=== PATIENT | male | born 1965 | race African-American/Black ===

== ENCOUNTER 2018-07-10 21:14 | Emergency (ER) | payer OTHER ==
[2018-07-10] MEDS ORDERED: ACETAMINOPHEN 500 MG TAB ONE (22:57)
--- NOTE | 2018-07-10 23:21 | EDPHYS ---
Physician Documentation [facility] Name: Phillip Faustin Age: 53 yrs Sex: Male : 1965 Arrival Date: 07/10/2018 Time: 21:15 Bed 8 Private MD: ED Physician Brandan Monsalve HPI: 07/10 23:27 This 53 yrs old Black Male presents to ER via Ambulatory with complaints of Cough, tw4 CHEST HURT WHEN COUGH. 23:27 The patient or guardian reports cough, described as moderate, with productive sputum. tw4 Onset: The symptoms/episode began/occurred 2 day(s) ago. Severity of symptoms: At their worst the symptoms were mild, in the emergency department the symptoms are unchanged. Modifying factors: The symptoms are alleviated by nothing, the symptoms are aggravated by nothing. Associated signs and symptoms: The patient has no apparent associated signs or symptoms. The patient has not experienced similar symptoms in the past. Historical: - Allergies: 21:26 No Known Allergies; aj1 - Home Meds: 21:26 None [Active]; aj1 - PMHx: 21:26 heart blockage; High Cholesterol; Hypertension; aj1 - Immunization history:: Flu vaccine is not up to date. - Social history:: Smoking status: Patient uses tobacco products, denies chronic smoking, but will smoke occasionally. - Ebola Screening: : Patient denies travel to an Ebola-affected area in the 21 days before illness onset. ROS: 23:27 Constitutional: Negative for fever, chills, and weight loss, Eyes: Negative for injury, tw4 pain, redness, and discharge, Cardiovascular: Negative for chest pain, palpitations, and edema, Abdomen/GI: Negative for abdominal pain, nausea, vomiting, diarrhea, and constipation. 23:27 Back: Negative for injury and pain, MS/Extremity: Negative for injury and deformity, Skin: Negative for injury, rash, and discoloration, Neuro: Negative for headache, weakness, numbness, tingling, and seizure. Exam: 23:27 Constitutional: This is a well developed, well nourished patient who is awake, alert, tw4 and in no acute distress. Head/Face: Normocephalic, atraumatic. Chest/axilla: Normal chest wall appearance and motion. Nontender with no deformity. No lesions are appreciated. Cardiovascular: Regular rate and rhythm with a normal S1 and S2. No gallops, murmurs, or rubs. Normal PMI, no JVD. No pulse deficits. Respiratory: Lungs have equal breath sounds bilaterally, clear to auscultation and percussion. No rales, rhonchi or wheezes noted. No increased work of breathing, no retractions or nasal flaring. Abdomen/GI: Soft, non-tender, with normal bowel sounds. No distension or tympany. No guarding or rebound. No evidence of tenderness throughout. Back: No spinal tenderness. No costovertebral tenderness. Full range of motion. MS/ Extremity: Pulses equal, no cyanosis. Neurovascular intact. Full, normal range of motion. Neuro: Awake and alert, GCS 15, oriented to person, place, time, and situation. Cranial nerves II-XII grossly intact. Motor strength 5/5 in all extremities. Sensory grossly intact. Cerebellar exam normal. Normal gait. Vital Signs: 21:26 BP 143 / 92; Pulse 100; Resp 18; Temp 98.5; Pulse Ox 95% on R/A; Weight 61.23 kg (R); aj1 Height 5 ft. 2 in. (157.48 cm) (R); Pain 8/10; 22:18 BP 111 / 55; Pulse 88; Resp 17; Pulse Ox 97% on R/A; tl1 23:29 BP 122 / 61; Pulse 91; Resp 17; Temp 99.8; Pulse Ox 98% on R/A; Pain 5/10; tl1 21:26 Body Mass Index 24.69 (61.23 kg, 157.48 cm) aj1 MDM: 21:50 Patient medically screened. tw4 23:27 Differential Diagnosis: Bronchitis Influenza Upper Respiratory Infection Pharyngitis tw4 Pneumonia. Data reviewed: vital signs, nurses notes. Counseling: I had a detailed discussion with the patient and/or guardian regarding: the historical points, exam findings, and any diagnostic results supporting the discharge/admit diagnosis, lab results. Special discussion: I discussed with the patient/guardian in detail that at this point there is no indication for admission to the hospital. It is understood, however, that if the symptoms persist or worsen the patient needs to return immediately for re-evaluation. ED course: CXR negative for acute changes, pt states he feels well. instructed to return to the ED if symptoms. 07/10 22:19 Order name: Influenza Screen (A EDCA 07/10 22:23 Order name: Chest Pa And Lat (2 Views) EDCA Administered Medications: 22:48 Drug: Tylenol 1000 mg Route: PO; tl1 23:30 Follow up: Response: No adverse reaction; Marked relief of symptoms; Pain is decreased tl1 Disposition: 07/10/18 23:20 Discharged to Home. Impression: Bronchitis, not specified as acute or chronic. - Condition is Stable. - Discharge Instructions: Acute Bronchitis, Adult, Upper Respiratory Infection, Adult, Cough, Adult. - Prescriptions for Tessalon Perles 100 mg Oral Capsule - take 1 capsule by ORAL route every 8 hours As needed; 15 capsule. Albuterol Sulfate 90 mcg/actuation - inhale 1-2 puff by INHALATION route every 4-6 hours; 1 Inhaler. Guaifenesin AC 10- 100 mg/5 mL Oral Liquid - take 10 milliliter by ORAL route every 4 hours As needed; 240 milliliter. - Work release form, Medication Reconciliation Form, Thank You Letter, Antibiotic Education, Prescription Opioid Use form. - Follow up: Private Physician; When: Upon discharge from the Emergency Department; Reason: If symptoms return, Recheck today's complaints, Continuance of care. - Problem is new. - Symptoms have improved. Signatures: Dispatcher [employer] [facility] Anastasiya Culver RN RN aj1 Erica Fernandez RN RN tl1 Brandan Monsalve MD MD tw4 Corrections: (The following items were deleted from the chart) 22:46 22:25 Group A Streptococcus Rapid Sc+BA.LAB.BRZ ordered. [facility] 22:47 22:25 Influenza Screen (A \T\ B)+BA.LAB.BRZ ordered. [facility] EDCA 22:57 22:27 Chest Pa And Lat (2 Views)+RAD.RAD.BRZ ordered. [facility]CA 23:30 23:20 07/10/2018 23:20 Discharged to Home. Impression: Bronchitis, not specified as tl1 acute or chronic. Condition is Stable. Forms are Medication Reconciliation Form, Thank You Letter, Antibiotic Education, Prescription Opioid Use. Follow up: Private Physician; When: Upon discharge from the Emergency Department; Reason: If symptoms return, Recheck today's complaints, Continuance of care. Problem is new. Symptoms have improved. tw4
--- NOTE | 2018-07-10 23:21 | ER ---
Nurse's Notes [facility] Name: Phillip Faustin Age: 53 yrs Sex: Male : 1965 Arrival Date: 07/10/2018 Time: 21:15 Bed 8 Private MD: Diagnosis: Bronchitis, not specified as acute or chronic Presentation: 07/10 21:24 Presenting complaint: Patient states: Heavy cough, chest pain when he cough for the aj1 past 2 days. Reports nasal congestion Denies shortness of breath. Transition of care: patient was not received from another setting of care. Onset of symptoms was July 08, 2017. Risk Assessment: Do you want to hurt yourself or someone else? Patient reports no desire to harm self or others. Initial Sepsis Screen: Does the patient meet any 2 criteria? HR > 90 bpm. No. Patient's initial sepsis screen is negative. Does the patient have a suspected source of infection? Yes: Productive cough/pneumonia. Care prior to arrival: None. 21:24 Method Of Arrival: Ambulatory aj1 21:24 Acuity: CORNELL 3 aj1 Triage Assessment: 21:26 General: Appears in no apparent distress. comfortable, Behavior is calm, cooperative, aj1 appropriate for age. Pain: Complains of pain in chest Pain does not radiate. Pain currently is 8 out of 10 on a pain scale. Neuro: Level of Consciousness is awake, alert, obeys commands. Cardiovascular: Reports chest pain, Patient's skin is warm and dry. Respiratory: Reports cough that is hacking, persistent Airway is patent Respiratory effort is even, unlabored, Respiratory pattern is regular, symmetrical. Historical: - Allergies: 21:26 No Known Allergies; aj1 - Home Meds: 21:26 None [Active]; aj1 - PMHx: 21:26 heart blockage; High Cholesterol; Hypertension; aj1 - Immunization history:: Flu vaccine is not up to date. - Social history:: Smoking status: Patient uses tobacco products, denies chronic smoking, but will smoke occasionally. - Ebola Screening: : Patient denies travel to an Ebola-affected area in the 21 days before illness onset. Screenin:20 Abuse screen: Denies threats or abuse. Denies injuries from another. Nutritional tl1 screening: No deficits noted. Tuberculosis screening: No symptoms or risk factors identified. Fall Risk None identified. Assessment: 22:18 General: Appears in no apparent distress. Neuro: Level of Consciousness is awake, tl1 alert, obeys commands, Oriented to person, place, time, situation. Cardiovascular: Denies chest pain. Respiratory: Reports cough that is productive, pain with cough since 2 days [employer] Airway is patent Trachea midline Respiratory effort is even, unlabored, Breath sounds with rhonchi bilaterally. GI: Abdomen is flat, Bowel sounds present X 4 quads. Abd is soft and non tender X 4 quads. : No signs and/or symptoms were reported regarding the genitourinary system. EENT: No signs and/or symptoms were reported regarding the EENT system. Derm: No signs and/or symptoms reported regarding the dermatologic system. 22:35 Reassessment: Patient appears in no apparent distress at this time. No changes from ak1 previously documented assessment. Patient and/or family updated on plan of care and expected duration. Pain level reassessed. Vital Signs: 21:26 BP 143 / 92; Pulse 100; Resp 18; Temp 98.5; Pulse Ox 95% on R/A; Weight 61.23 kg (R); aj1 Height 5 ft. 2 in. (157.48 cm) (R); Pain 8/10; 22:18 BP 111 / 55; Pulse 88; Resp 17; Pulse Ox 97% on R/A; tl1 23:29 BP 122 / 61; Pulse 91; Resp 17; Temp 99.8; Pulse Ox 98% on R/A; Pain 5/10; tl1 21:26 Body Mass Index 24.69 (61.23 kg, 157.48 cm) aj1 ED Course: 21:15 Patient arrived in ED. es 21:25 Triage completed. aj1 21:26 Arm band placed on Patient placed in an exam room. aj1 21:36 Sirisha Nina, RN is Primary Nurse. ak1 21:50 Brandan Monsalve MD is Attending Physician. tw4 22:35 Patient has correct armband on for positive identification. ak1 23:02 Chest Pa And Lat (2 Views) In Process Unspecified. EDMS 23:21 No provider procedures requiring assistance completed. Patient did not have IV access ak1 during this emergency room visit. Administered Medications: 22:48 Drug: Tylenol 1000 mg Route: PO; tl1 23:30 Follow up: Response: No adverse reaction; Marked relief of symptoms; Pain is decreased tl1 Outcome: 23:20 Discharge ordered by . tw4 23:21 Discharged to home ambulatory. ak1 23:21 Condition: good 23:29 Discharge instructions given to patient, Instructed on discharge instructions, follow tl1 up and referral plans. medication usage, Demonstrated understanding of instructions, follow-up care, medications, Prescriptions given X 3. 23:30 Patient left the ED. tl1 Signatures: Dispatcher [employer] Anastasiya Benito RN RN aj1 Miriam Sow Tonya RN RN tl1 Sirisha Nina RN RN ak1 Brandan Monsalve MD MD tw4
[2018-07-11 00:32] VITALS: BP 122/61; TEMP 99.8; O2SAT 98
--- NOTE | 2018-07-11 09:01 | RAD REPORT ---
EXAM DESCRIPTION: RAD - Chest Pa And Lat (2 Views) - 07/10/2018 11:01 pm CLINICAL HISTORY: Cough, chest pain COMPARISON: January 2017 TECHNIQUE: PA and lateral views of the chest were obtained. FINDINGS: The lungs are clear of a focal process. Lung markings are similar to comparison. Heart s ize is normal and central vasculature is within normal limits. No pleural effusion or pneumothorax s een. No acute bony finding noted. No aortic abnormality. IMPRESSION: No acute cardiopulmonary process.
== END 2018-07-10 23:30 | disposition home or self-care (01) ==
LOC: ER 21:14
DX: J40 Bronchitis, not specified as acute or chronic (principal); I10 Essential (primary) hypertension; Z72.0 Tobacco use
CPT/HCPCS: 71046; 87804; 99283

== ENCOUNTER 2020-06-18 15:29 | Emergency (ER) | payer OTHER, SELFPAY ==
[2020-06-18] MEDS ORDERED: ACETAMINOPHEN 325 MG TABLET ONE (16:32)
[2020-06-18] MEDS ORDERED: NA CHLORIDE 0.9% 1,000 ML ONE (16:32)
[2020-06-18 16:33] LABS: Absolute Lymphocytes (CBC) 2.3 K/uL (0.7-4.9); Basophils % 0.6 % (0-1.3); Hematocrit 39.5 % (39.6-49.0); Lymphocytes % 15.3 % (15.3-44.8); MPV 7.4 fL (7.6-11.3); RBC Red Blood Cell Count 4.42 M/uL (4.33-5.43)
[2020-06-18 16:42] LABS: Potassium 2.8 mmol/L (3.5-5.1)
[2020-06-18 16:48] LABS: Urine Blood 1+ (NEG); Urine Glucose NEGATIVE (NEG); Urine Protein 2+ (NEG); Urine pH 6.5 (5.0-7.0)
[2020-06-18 16:59] LABS: Urine Bacteria >50 /HPF (NONE SEEN); Urine RBC 20-50 /HPF (NONE SEEN)
[2020-06-18] MEDS ORDERED: CEFTRIAXONE/SWI 1gm 1 GM/10 ML SYR ONE (17:07)
[2020-06-18] MEDS ORDERED: KCL 20 MEQ/100 mL IVPB 20 MEQ/100 ML BAG IV ONE (17:23)
--- NOTE | 2020-06-18 17:31 | RAD REPORT ---
EXAM DESCRIPTION: CT - Abdomen Pelvis W Contrast - 06/18/2020 5:06 pm CLINICAL HISTORY: Abdominal pain COMPARISON: none. TECHNIQUE: Computed axial tomography of the abdomen pelvis was obtained. 100 cc Isovue-300 was admin istered intravenously. Oral contrast was not requested which limits evaluation of bowel. All CT scans are performed using dose optimization technique as appropriate and may include automated exposure control or mA/KV adjustment according to patient size. FINDINGS: Many tiny hepatic lesions mildly progressed from the prior exam likely benign Spleen, pancreas, adrenals and right kidney unremarkable. Small nonobstructing left renal calculus. 7 millimeter low to intermediate density lesion lower pole There is no evidence of diverticulitis. Normal appendix. Atherosclerosis IMPRESSION: Small non obstructing left renal calculus. A 7 millimeter low to intermediate density left renal lesion probably a benign complex cyst. As a cys tic neoplasm can have a similar appearance it is recommended that the patient have a followup renal u ltrasound in 6 months for re-evaluation
--- NOTE | 2020-06-18 17:35 | EDPHYS ---
Physician Documentation [facility] Name: Phillip Faustin Age: 55 yrs Sex: Male : 1965 Arrival Date: 06/18/2020 Time: 15:33 Bed 18 Private MD: ED Physician Moy Trujillo HPI: 06/18 17:34 This 55 yrs old Black Male presents to ER via Ambulatory with complaints of Nausea, kb Urinary Problem. 17:34 The patient presents with urinary symptoms, dysuria. Onset: The symptoms/episode kb began/occurred 2 day(s) ago. Modifying factors: The symptoms are alleviated by nothing, the symptoms are aggravated by nothing. Associated signs and symptoms: Pertinent positives: abdominal pain, dysuria, nausea, Pertinent negatives: constipation, diarrhea, fever, hematuria, vomiting. Severity of symptoms: At their worst the symptoms were moderate, in the emergency department the symptoms are unchanged. The patient has not experienced similar symptoms in the past. The patient has not recently seen a physician. Historical: - Allergies: 15:41 No Known Allergies; jd3 - Home Meds: 15:41 cholesteral med X 2 [Active]; blood pressure med [Active]; jd3 - PMHx: 15:41 heart blockage; High Cholesterol; Hypertension; jd3 - PSHx: 15:41 Heart stents; jd3 - Immunization history:: Adult Immunizations up to date. - Social history:: Smoking status: Patient/guardian denies using tobacco, the patient reports quitting approximately 1 years ago. ROS: 17:33 Constitutional: Negative for fever, chills, and weight loss, Cardiovascular: Negative kb for chest pain, palpitations, and edema, Respiratory: Negative for shortness of breath, cough, wheezing, and pleuritic chest pain, MS/Extremity: Negative for injury and deformity, Skin: Negative for injury, rash, and discoloration, Neuro: Negative for headache, weakness, numbness, tingling, and seizure. 17:33 Abdomen/GI: Positive for "feels bloated". 17:33 : Positive for burning with urination. Exam: 17:33 Constitutional: This is a well developed, well nourished patient who is awake, alert, kb and in no acute distress. Head/Face: Normocephalic, atraumatic. Chest/axilla: Normal chest wall appearance and motion. Nontender with no deformity. No lesions are appreciated. Cardiovascular: Regular rate and rhythm with a normal S1 and S2. No gallops, murmurs, or rubs. Normal PMI, no JVD. No pulse deficits. Respiratory: Lungs have equal breath sounds bilaterally, clear to auscultation and percussion. No rales, rhonchi or wheezes noted. No increased work of breathing, no retractions or nasal flaring. Abdomen/GI: Soft, non-tender, with normal bowel sounds. No distension or tympany. No guarding or rebound. No evidence of tenderness throughout. Skin: Warm, dry with normal turgor. Normal color with no rashes, no lesions, and no evidence of cellulitis. MS/ Extremity: Pulses equal, no cyanosis. Neurovascular intact. Full, normal range of motion. Neuro: Awake and alert, GCS 15, oriented to person, place, time, and situation. Cranial nerves II-XII grossly intact. Motor strength 5/5 in all extremities. Sensory grossly intact. Cerebellar exam normal. Normal gait. Vital Signs: 15:41 BP 137 / 87; Pulse 100; Resp 16 S; Temp 100.6(O); Pulse Ox 100% on R/A; Weight 58.97 kg jd3 (R); Height 5 ft. 3 in. (160.02 cm) (R); Pain 8/10; 16:21 BP 132 / 74; Pulse 101; Resp 17; Temp 101.5(O); Pulse Ox 100% on R/A; mh5 17:20 BP 112 / 69; Pulse 87; Resp 17; Pulse Ox 100% ; rb3 18:20 BP 120 / 73; Pulse 80; Resp 16; Pulse Ox 100% ; rb3 19:00 BP 120 / 73; Pulse 80; Resp 16; Pulse Ox 100% on R/A; jb4 15:41 Body Mass Index 23.03 (58.97 kg, 160.02 cm) jd3 MDM: 15:51 Patient medically screened. kb 17:33 Data reviewed: vital signs, nurses notes. Data interpreted: Pulse oximetry: on room air kb is 100 %. Interpretation: normal. Counseling: I had a detailed discussion with the patient and/or guardian regarding: the historical points, exam findings, and any diagnostic results supporting the discharge/admit diagnosis, lab results, radiology results, the need for outpatient follow up, a family practitioner, to return to the emergency department if symptoms worsen or persist or if there are any questions or concerns that arise at home. 06/18 15:55 Order name: Basic Metabolic Panel; Complete Time: 17:03 kb 06/18 15:55 Order name: CBC with Diff; Complete Time: 17:03 kb 06/18 15:55 Order name: CT Abd/Pelvis - IV Contrast Only; Complete Time: 17:33 kb 06/18 16:20 Order name: Urine Microscopic Only; Complete Time: 17:27 kb 06/18 16:25 Order name: Urine Dipstick--Ancillary (enter results); Complete Time: 17:03 eb 06/18 17:25 Order name: Urine Culture EDPR 06/18 15:42 Order name: Urine Dipstick-Ancillary (obtain specimen); Complete Time: 16:24 kb 06/18 15:55 Order name: IV Saline Lock; Complete Time: 16:24 kb 06/18 15:55 Order name: Labs collected and sent; Complete Time: 16:24 kb Administered Medications: 16:16 Drug: NS 0.9% 1000 ml Route: IV; Rate: 1000 ml; Site: right antecubital; rb3 16:18 Drug: Tylenol 650 mg Route: PO; rb3 17:19 Follow up: Response: No adverse reaction; Temperature is decreased; Temp 99.0 rb3 17:11 Drug: Rocephin 1 grams Route: IV; Rate: calculated rate; Site: right antecubital; rb3 17:15 Drug: Potassium Chloride 20 mEq Route: IV; Rate: calculated rate; Site: right rb3 antecubital; 19:35 Follow up: Response: No adverse reaction; IV Status: Completed infusion jb4 17:47 Drug: Potassium Effervescent Tablet 50 mEq Route: PO; rb3 Disposition: 06/19 15:17 Co-signature as Attending Physician, Moy Trujillo MD. rn Disposition: 06/18/20 17:35 Discharged to Home. Impression: Urinary tract infection, site not specified, Hypokalemia. - Condition is Stable. - Discharge Instructions: Urinary Tract Infection, Adult, [id number]. - Prescriptions for Cipro 500 mg Oral Tablet - take 1 tablet by ORAL route every 12 hours for 10 days; 20 tablet. - Medication Reconciliation Form, Thank You Letter, Antibiotic Education, Prescription Opioid Use form. - Follow up: Emergency Department; When: As needed; Reason: Worsening of condition. Follow up: Private Physician; When: 2 - 3 days; Reason: Recheck today's complaints, Continuance of care, Re-evaluation by your physician. Signatures: Dispatcher [employer] EDMS Madie Jenkins, [employer]-C [employer]ER-Ckb Moy Trujillo MD MD rn Bryson, James RN RN jb4 Tanner Sheppard RN RN jd3 Annabelle Samaniego RN RN rb3 Corrections: (The following items were deleted from the chart) 06/18 17:38 17:35 06/18/2020 17:35 Discharged to Home. Impression: Urinary tract infection, site kb not specified. Condition is Stable. Forms are Medication Reconciliation Form, Thank You Letter, Antibiotic Education, Prescription Opioid Use. Follow up: Emergency Department; When: As needed; Reason: Worsening of condition. Follow up: Private Physician; When: 2 - 3 days; Reason: Recheck today's complaints, Continuance of care, Re-evaluation by your physician. kb 19:35 17:38 06/18/2020 17:35 Discharged to Home. Impression: Urinary tract infection, site jb4 not specified; Hypokalemia. Condition is Stable. Discharge Instructions: Urinary Tract Infection, Adult, [id number]. Prescriptions for Cipro 500 mg Oral Tablet - take 1 tablet by ORAL route every 12 hours for 10 days; 20 tablet. and Forms are Medication Reconciliation Form, Thank You Letter, Antibiotic Education, Prescription Opioid Use. Follow up: Emergency Department; When: As needed; Reason: Worsening of condition. Follow up: Private Physician; When: 2 - 3 days; Reason: Recheck today's complaints, Continuance of care, Re-evaluation by your physician. kb
--- NOTE | 2020-06-18 17:35 | ER ---
Nurse's Notes [facility] Name: Phillip Faustin Age: 55 yrs Sex: Male : 1965 Arrival Date: 06/18/2020 Time: 15:33 Bed 18 Private MD: Diagnosis: Urinary tract infection, site not specified;Hypokalemia Presentation: 06/18 15:37 Chief complaint: Patient states: "I am having feeling bad for about [address] when I pee, and my stomach has been hurting.". Coronavirus screen: fever, Client presents with at least one sign or symptom that may indicate coronavirus-19. Standard/surgical mask placed on the client. Provider contacted for isolation considerations. Ebola Screen: Patient negative for fever greater than or equal to 101.5 degrees Fahrenheit, and additional compatible Ebola Virus Disease symptoms. Initial Sepsis Screen: Does the patient meet any 2 criteria? No. Patient's initial sepsis screen is negative. Does the patient have a suspected source of infection? No. Patient's initial sepsis screen is negative. Risk Assessment: Do you want to hurt yourself or someone else? Patient reports no desire to harm self or others. Onset of symptoms was June 16, 2020. 15:37 Method Of Arrival: Ambulatory j 15:37 Acuity: CORNELL 3 aa5 Historical: - Allergies: 15:41 No Known Allergies; jd3 - Home Meds: 15:41 cholesteral med X 2 [Active]; blood pressure med [Active]; jd3 - PMHx: 15:41 heart blockage; High Cholesterol; Hypertension; jd3 - PSHx: 15:41 Heart stents; jd3 - Immunization history:: Adult Immunizations up to date. - Social history:: Smoking status: Patient/guardian denies using tobacco, the patient reports quitting approximately 1 years ago. Screenin:57 Abuse screen: Denies threats or abuse. Nutritional screening: No deficits noted. rb3 Tuberculosis screening: No symptoms or risk factors identified. Fall Risk None identified. Assessment: 15:57 General: Appears in no apparent distress. comfortable, Behavior is calm, cooperative. rb3 Pain: Complains of pain in abdomen. Neuro: Level of Consciousness is awake, alert, obeys commands, Oriented to person, place, time, situation. Cardiovascular: Capillary refill < 3 seconds. Respiratory: Airway is patent Respiratory effort is even, unlabored, Respiratory pattern is regular, symmetrical. GI: Abdomen is distended, pt. reports feeling bloated. : Reports burning with urination, since x 2 days. Derm: Skin is dry, Skin is normal, Skin temperature is warm. 16:48 Reassessment: Patient appears in no apparent distress at this time. No changes from rb3 previously documented assessment. 17:40 Reassessment: Patient appears in no apparent distress at this time. Patient and/or rb3 family updated on plan of care and expected duration. Pain level reassessed. Patient is alert, oriented x 3, equal unlabored respirations, skin warm/dry/pink. Discharge pending due to Potassium infusing. 18:20 Reassessment: Patient appears in no apparent distress at this time. No changes from rb3 previously documented assessment. Potassium continues to infuse. 19:00 Reassessment: Patient appears in no apparent distress at this time. Patient and/or jb4 family updated on plan of care and expected duration. Pain level reassessed. Patient is alert, oriented x 3, equal unlabored respirations, skin warm/dry/pink. 19:33 Reassessment: Patient appears in no apparent distress at this time. Patient and/or jb4 family updated on plan of care and expected duration. Pain level reassessed. Patient is alert, oriented x 3, equal unlabored respirations, skin warm/dry/pink. Vital Signs: 15:41 BP 137 / 87; Pulse 100; Resp 16 S; Temp 100.6(O); Pulse Ox 100% on R/A; Weight 58.97 kg jd3 (R); Height 5 ft. 3 in. (160.02 cm) (R); Pain 8/10; 16:21 BP 132 / 74; Pulse 101; Resp 17; Temp 101.5(O); Pulse Ox 100% on R/A; mh5 17:20 BP 112 / 69; Pulse 87; Resp 17; Pulse Ox 100% ; rb3 18:20 BP 120 / 73; Pulse 80; Resp 16; Pulse Ox 100% ; rb3 19:00 BP 120 / 73; Pulse 80; Resp 16; Pulse Ox 100% on R/A; jb4 15:41 Body Mass Index 23.03 (58.97 kg, 160.02 cm) jd3 ED Course: 15:33 Patient arrived in ED. ds1 15:39 Triage completed. jd3 15:41 Arm band placed on. jd3 15:42 Madie Jenkins F[facility]-C is [facility]. kb 15:42 Moy Trujillo MD is Attending Physician. kb 16:00 Annabelle Samaniego, RN is Primary Nurse. rb3 16:03 Allergy band placed. Bed in low position. Call light in reach. Side rails up X 1. Pulse mh5 ox on. NIBP on. 16:23 Initial lab(s) drawn, by az, sent to lab. Urine collected: clean catch specimen, mh5 cloudy. Inserted saline lock: 22 gauge in right antecubital area, using aseptic technique. Blood collected. 16:24 Urine Microscopic Only Sent. mh5 16:24 Basic Metabolic Panel Sent. mh5 16:24 CBC with Diff Sent. mh5 17:06 CT Abd/Pelvis - IV Contrast Only In Process Unspecified. EDMS 19:34 No provider procedures requiring assistance completed. IV discontinued, intact, jb4 bleeding controlled, No redness/swelling at site. Pressure dressing applied. Administered Medications: 16:16 Drug: NS 0.9% 1000 ml Route: IV; Rate: 1000 ml; Site: right antecubital; rb3 16:18 Drug: Tylenol 650 mg Route: PO; rb3 17:19 Follow up: Response: No adverse reaction; Temperature is decreased; Temp 99.0 rb3 17:11 Drug: Rocephin 1 grams Route: IV; Rate: calculated rate; Site: right antecubital; rb3 17:15 Drug: Potassium Chloride 20 mEq Route: IV; Rate: calculated rate; Site: right rb3 antecubital; 19:35 Follow up: Response: No adverse reaction; IV Status: Completed infusion jb4 17:47 Drug: Potassium Effervescent Tablet 50 mEq Route: PO; rb3 Intake: Outcome: 17:35 Discharge ordered by . kb 19:34 Discharged to home ambulatory. jb4 19:34 Condition: stable 19:34 Discharge instructions given to patient, Instructed on discharge instructions, follow up and referral plans. medication usage, Demonstrated understanding of instructions, follow-up care, medications, Prescriptions given X 1. 19:35 Patient left the ED. jb4 Addendum: 06/21/2020 07:32 Addendum: Culture Results: Positive urine culture. No further action required. Bacteria s s sensitive to prescribed antibiotic. Signatures: Dispatcher [employer] EDMadie Haynes, SHARON ROWAN-Glenis Brooks ds1 Mary Varela, RN RN aa5 Kellie Harmon RN RN ss Shant Granda RN RN jb4 Ingrid Pierre Tanner Johnson RN RN jd3 Annabelle Samaniego RN RN rb3 Corrections: (The following items were deleted from the chart) 06/18 15:57 15:37 Acuity: CORNELL 4 jd3 aa5
[2020-06-18] MEDS ORDERED: POTASSIUM 25 MEQ EFFERV TAB ONE (18:04)
[2020-06-18] MEDS ORDERED: NA CHLORIDE 0.9% 500 ML ONE (18:10)
[2020-06-18 19:39] VITALS: O2SAT 100
[2020-06-18 19:40] VITALS: TEMP 101.5
[2020-06-18 19:43] VITALS: BP 120/73
== END 2020-06-18 19:35 | disposition home or self-care (01) ==
LOC: ER 15:29
DX: N39.0 Urinary tract infection, site not specified (principal); E87.6 Hypokalemia; I10 Essential (primary) hypertension; E78.00 Pure hypercholesterolemia, unspecified; Z95.818 Presence of other cardiac implants and grafts
CPT/HCPCS: 36415; 74177; 80048; 81003; 81015; 85025; 87077; 87086; 87088; 87186; 96365; 96366; 96375; 99284; J0696; J3480; J7030; J7040; Q9967

== ENCOUNTER 2021-11-04 05:56 | Emergency (ER) | payer OTHER, SELFPAY ==
[2021-11-04] MEDS ORDERED: NA CHLORIDE 0.9% 1,000 ML ONE ×2 (06:45→08:18)
[2021-11-04] MEDS ORDERED: ONDANSETRON 4 MG/2 ML VIAL ONE (06:45)
[2021-11-04 07:03] LABS: Hematocrit 43.7 % (39.6-49.0); Lymphocytes % 16.9 % (15.3-44.8); MPV 7.8 fL (7.6-11.3); RBC Red Blood Cell Count 4.65 M/uL (4.33-5.43)
[2021-11-04 07:21] LABS: Albumin 3.7 g/dL (3.4-5.0); Bilirubin Total 0.5 mg/dL (0.2-1.0); Protein, Total 7.4 g/dL (6.4-8.2)
[2021-11-04 07:22] LABS: Potassium 2.9 mmol/L (3.5-5.1)
[2021-11-04] MEDS ORDERED: POTASSIUM 25 MEQ EFFERV TAB ONE (08:05)
[2021-11-04] MEDS ORDERED: KCL 20 MEQ/100 mL IVPB 100 ML IV ONE (08:05)
--- NOTE | 2021-11-04 09:11 | EKG ---
Test Date: 2021-11-04 Test Time: 06:43:53 Glaucoma Specialist: JUVENAL MEASUREMENT RESULTS: Intervals: Rate: 77 AK: 162 QRSD: 94 QT: 400 QTc: [address]: P: 73 AK: 162 QRS: 87 T: 63 INTERPRETIVE STATEMENTS: Normal sinus rhythm Normal ECG Compared to ECG 02/12/2017 19:04:31 No significant changes Electronically Signed On 11-04-21 09:10:33 CDT by Michael Hager
[2021-11-04 09:55] LABS: Urine Blood Negative (Negative); Urine Glucose Negative (Negative); Urine Protein Negative (Negative); Urine pH 8.5 (5.0-7.0)
--- NOTE | 2021-11-04 11:21 | EDPHYS ---
Physician Documentation [facility] Name: Phillip Faustin Age: 56 yrs Sex: Male : 1965 Arrival Date: 11/04/2021 Time: 06:00 Bed 20 Private MD: ED Physician Kranthi Morrow HPI: 11/04 06:31 This 56 yrs old Black Male presents to ER via Ambulatory with complaints of mh7 Nausea/Vomiting. 06:31 The patient presents to the emergency department with nausea, that is moderate, mh7 vomiting, that is intermittent, 3 times since the onset of symptoms, described as clear fluid. Onset: The symptoms/episode began/occurred last night. Possible causes: bad food exposure, crawfish. The symptoms are aggravated by nothing. The symptoms are alleviated by nothing. Associated signs and symptoms: Pertinent negatives: abdominal pain, anorexia, belching, constipation, diarrhea, dysuria, fever, flatulence, GI bleeding, hematuria. Severity of symptoms: At their worst the symptoms were moderate last night, in the emergency department the symptoms have improved mildly. Historical: - Allergies: 06:30 No Known Allergies; ag7 - Home Meds: 06:30 blood pressure med [Active]; cholesteral med X 2 [Active]; ag7 - PMHx: 06:30 heart blockage; High Cholesterol; Hypertension; ag7 - PSHx: 06:30 None; ag7 - Immunization history:: Adult Immunizations up to date, Client reports receiving the 2nd dose of the Covid vaccine, Flu vaccine is up to date. - Social history:: Smoking status: Patient denies any tobacco usage or history of. ROS: 06:31 Constitutional: Negative for fever, chills, and weight loss, Eyes: Negative for injury, mh7 pain, redness, and discharge, Neck: Negative for injury, pain, and swelling, Cardiovascular: Negative for chest pain, palpitations, and edema, Respiratory: Negative for shortness of breath, cough, wheezing, and pleuritic chest pain, Back: Negative for injury and pain, : Negative for injury, bleeding, discharge, and swelling, MS/Extremity: Negative for injury and deformity, Skin: Negative for injury, rash, and discoloration, Neuro: Negative for headache, weakness, numbness, tingling, and seizure, Psych: Negative for depression, anxiety, suicide ideation, homicidal ideation, and hallucinations, Allergy/Immunology: Negative for hives, rash, and allergies, Endocrine: Negative for neck swelling, polydipsia, polyuria, polyphagia, and marked weight changes, Hematologic/Lymphatic: Negative for swollen nodes, abnormal bleeding, and unusual bruising. Exam: 06:31 Head/Face: Normocephalic, atraumatic. Eyes: Pupils equal round and reactive to light, mh7 extra-ocular motions intact. Lids and lashes normal. Conjunctiva and sclera are non-icteric and not injected. Cornea within normal limits. Periorbital areas with no swelling, redness, or edema. Neck: Trachea midline, no thyromegaly or masses palpated, and no cervical lymphadenopathy. Supple, full range of motion without nuchal rigidity, or vertebral point tenderness. No Meningismus. Chest/axilla: Normal chest wall appearance and motion. Nontender with no deformity. No lesions are appreciated. Cardiovascular: Regular rate and rhythm with a normal S1 and S2. No gallops, murmurs, or rubs. Normal PMI, no JVD. No pulse deficits. Respiratory: Lungs have equal breath sounds bilaterally, clear to auscultation and percussion. No rales, rhonchi or wheezes noted. No increased work of breathing, no retractions or nasal flaring. Abdomen/GI: Soft, non-tender, with normal bowel sounds. No distension or tympany. No guarding or rebound. No evidence of tenderness throughout. Back: No spinal tenderness. No costovertebral tenderness. Full range of motion. Skin: Warm, dry with normal turgor. Normal color with no rashes, no lesions, and no evidence of cellulitis. MS/ Extremity: Pulses equal, no cyanosis. Neurovascular intact. Full, normal range of motion. Neuro: Awake and alert, GCS 15, oriented to person, place, time, and situation. Cranial nerves II-XII grossly intact. Motor strength 5/5 in all extremities. Sensory grossly intact. Cerebellar exam normal. Normal gait. Psych: Awake, alert, with orientation to person, place and time. Behavior, mood, and affect are within normal limits. 06:31 Constitutional: The patient appears in no acute distress, alert, awake, uncomfortable. Vital Signs: 06:19 BP 124 / 70; Pulse 80; Resp 20; Temp 98.1; Pulse Ox 97% ; Weight 54.43 kg; Height 5 ft. ag7 2 in. (157.48 cm); Pain 0/10; 07:56 BP 115 / 55; Pulse 73; Resp 17; Pulse Ox 99% on R/A; rodriguez 10:50 BP 137 / 75; Pulse 67; Resp 18; Pulse Ox 100% on R/A; rodriguez 06:19 Body Mass Index 21.95 (54.43 kg, 157.48 cm) ag7 MDM: 11:20 Patient medically screened. kdr 12:04 Data reviewed: vital signs, nurses notes, lab test result(s). Counseling: I had a kdr detailed discussion with the patient and/or guardian regarding: the historical points, exam findings, and any diagnostic results supporting the discharge/admit diagnosis, lab results, the need for outpatient follow up. 11/04 06:30 Order name: CBC with Diff; Complete Time: 08:35 [facility] 11/04 06:30 Order name: CMP; Complete Time: 08:35 [facility] 11/04 06:30 Order name: Lipase; Complete Time: 08:35 [facility] 11/04 08:36 Order name: Potassium; Complete Time: 11:18 [facility] 11/04 09:56 Order name: Urine Dipstick-Ancillary; Complete Time: 10:06 [facility] 11/04 06:30 Order name: IV Saline Lock; Complete Time: 06:51 [facility] 11/04 06:30 Order name: Labs collected and sent; Complete Time: 06:51 [facility] 11/04 06:30 Order name: Urine Dipstick-Ancillary (obtain specimen); Complete Time: 09:56 [facility] 11/04 06:34 Order name: EKG; Complete Time: 06:34 [facility] 11/04 06:34 Order name: EKG - Nurse/Tech; Complete Time: 06:51 [facility] 11/04 10:37 Order name: Labs - recollect needed: recollect potassium hemolyzed; Complete Time: 11:01iw Administered Medications: 06:51 Drug: NS 0.9% 1000 ml Route: IV; Rate: 1 bolus; Site: right antecubital; ag7 06:51 Drug: Zofran (Ondansetron) 4 mg Route: IVP; Site: right antecubital; ag7 07:03 Follow up: Response: No adverse reaction ag7 08:04 Drug: Potassium Chloride 20 mEq Route: IV; Rate: calculated rate; Site: right rodriguez antecubital; 08:04 Drug: Potassium Effervescent Tablet 50 mEq Route: PO; rodriguez 08:04 Follow up: Response: No adverse reaction rodriguez Disposition Summary: 11/04/21 11:20 Discharge Ordered Location: Home kdr Problem: new kdr Symptoms: have improved kdr Condition: Stable kdr Diagnosis - Nausea kdr Followup: kdr - With: Private Physician - When: 2 - 3 days - Reason: If symptoms return, Further diagnostic work-up, Recheck today's complaints, Continuance of care, Re-evaluation by your physician Discharge Instructions: - Discharge Summary Sheet kdr - Nausea and Vomiting, Adult kdr Forms: - Medication Reconciliation Form kdr - Thank You Letter kdr Prescriptions: - Zofran 4 mg Oral Tablet - take 1 tablet by ORAL route every 4-6 hours As needed; 12 tablet; Refills: 0, kdr Product Selection Permitted Signatures: Dispatcher [employer] Kranthi Garcia MD MD [facility] Yeimi Gaston RN RN iw Holmes, Maurice, MD MD mh7 Ira Preciado RN RN Anastasiya Adams RN RN ag7
--- NOTE | 2021-11-04 11:21 | ER ---
Nurse's Notes [facility] Name: Phillip Faustin Age: 56 yrs Sex: Male : 1965 Arrival Date: 11/04/2021 Time: 06:00 Bed 20 Private MD: Diagnosis: Nausea Presentation: 11/04 06:19 Chief complaint: Patient states: Patient state, "I ate crawfish at a boil x 1 day ago ag7 and started vominting, nausea, and fever at home". Coronavirus screen: Client denies travel out of the [place] in the last 14 days. At this time, the client does not indicate any symptoms associated with coronavirus-19. Ebola Screen: Patient negative for fever greater than or equal to 101.5 degrees Fahrenheit, and additional compatible Ebola Virus Disease symptoms Patient denies exposure to infectious person. Patient denies travel to an Ebola-affected area in the 21 days before illness onset. Initial Sepsis Screen: Does the patient meet any 2 criteria? No. Patient's initial sepsis screen is negative. Does the patient have a suspected source of infection? No. Patient's initial sepsis screen is negative. Risk Assessment: Do you want to hurt yourself or someone else? Patient reports no desire to harm self or others. Onset of symptoms was November 03, 2021. 06:19 Method Of Arrival: Ambulatory ag7 06:19 Acuity: CORNELL 3 ag7 Historical: - Allergies: 06:30 No Known Allergies; ag7 - Home Meds: 06:30 blood pressure med [Active]; cholesteral med X 2 [Active]; ag7 - PMHx: 06:30 heart blockage; High Cholesterol; Hypertension; ag7 - PSHx: 06:30 None; ag7 - Immunization history:: Adult Immunizations up to date, Client reports receiving the 2nd dose of the Covid vaccine, Flu vaccine is up to date. - Social history:: Smoking status: Patient denies any tobacco usage or history of. Screenin:33 Abuse screen: Denies threats or abuse. Nutritional screening: No deficits noted. ag7 Tuberculosis screening: No symptoms or risk factors identified. Fall Risk No fall in past 12 months (0 pts). No secondary diagnosis (0 pts). No IV (0 pts). Ambulatory Aid- None/Bed Rest/Nurse Assist (0 pts). Gait- Normal/Bed Rest/Wheelchair (0 pts) Mental Status- Oriented to own ability (0 pts). Total Carrillo Fall Scale indicates No Risk (0-24 pts). Assessment: 06:31 General: Appears in no apparent distress. Behavior is calm, cooperative, appropriate ag7 for age. Pain: Denies pain. Neuro: Level of Consciousness is awake, alert, obeys commands, Oriented to person, place, time, situation, Appropriate for age Quality Assurance Monitor Final are equal bilaterally. Cardiovascular: Heart tones S1 S2 present Patient's skin is warm and dry. Respiratory: Airway is patent Trachea midline Respiratory effort is even, unlabored, Respiratory pattern is regular, symmetrical, Breath sounds are clear bilaterally. GI: Abdomen is flat, non-distended, Pt is actively vomiting undigested food, Last BM was November 03, 2032. Bowel sounds present X 4 quads. Reports nausea, vomiting. Vital Signs: 06:19 BP 124 / 70; Pulse 80; Resp 20; Temp 98.1; Pulse Ox 97% ; Weight 54.43 kg; Height 5 ft. ag7 2 in. (157.48 cm); Pain 0/10; 07:56 BP 115 / 55; Pulse 73; Resp 17; Pulse Ox 99% on R/A; rodriguez 10:50 BP 137 / 75; Pulse 67; Resp 18; Pulse Ox 100% on R/A; rodriguez 06:19 Body Mass Index 21.95 (54.43 kg, 157.48 cm) ag7 ED Course: 06:00 Patient arrived in ED. bp1 06:16 Rico Bentley MD is Attending Physician. 7 06:17 Anastasiya Adams, RN is Primary Nurse. ag7 06:30 Triage completed. ag7 06:34 Arm band placed on right wrist. ag7 06:34 Patient has correct armband on for positive identification. Bed in low position. Call ag7 light in reach. Side rails up X 1. 06:52 CBC with Diff Sent. ag7 06:52 CMP Sent. ag7 06:52 Lipase Sent. ag7 06:52 Inserted saline lock: 20 gauge in right antecubital area, using aseptic technique. ag7 Blood collected. 07:13 Attending Physician role handed off by Rico Bentley MD kdr 07:13 Kranthi Morrow MD is Attending Physician. kdr 07:57 No provider procedures requiring assistance completed. rodriguez 11:40 IV discontinued, intact, Pressure dressing applied. rodriguez Administered Medications: 06:51 Drug: NS 0.9% 1000 ml Route: IV; Rate: 1 bolus; Site: right antecubital; ag7 06:51 Drug: Zofran (Ondansetron) 4 mg Route: IVP; Site: right antecubital; ag7 07:03 Follow up: Response: No adverse reaction ag7 08:04 Drug: Potassium Chloride 20 mEq Route: IV; Rate: calculated rate; Site: right rodriguez antecubital; 08:04 Drug: Potassium Effervescent Tablet 50 mEq Route: PO; rodriguez 08:04 Follow up: Response: No adverse reaction rodriguez Medication: 06:34 VIS not applicable for this client. ag7 Outcome: 11:20 Discharge ordered by . kdr 11:40 Discharged to home ambulatory. rodriguez 11:40 Condition: good 11:40 Discharge instructions given to patient, Prescriptions given X 1. 11:41 Patient left the ED. rodriguez Addendum: 11/06/2021 22:12 Addendum: Other Accepted for transfer to [facility] by Dr. Pantera Yousif. w m Signatures: Kranthi Morrow MD MD [facility] Kriss Love Maurice, MD MD [facility] Fany Pastrana Ira Preciado RN RN Anastasiya Adams RN RN 7
[2021-11-04 11:45] VITALS: TEMP 98.1
[2021-11-04 11:49] VITALS: BP 137/75; O2SAT 100
== END 2021-11-04 11:41 | disposition home or self-care (01) ==
LOC: ER 05:56
DX: R11.0 Nausea (principal); I10 Essential (primary) hypertension; E78.00 Pure hypercholesterolemia, unspecified
CPT/HCPCS: 93005; 85025; 36415; 84132; 81003; 83690; 80053; 96375; 96374; 99284; J3480; J7030 ×2; J2405

== ENCOUNTER 2021-11-06 07:49 | Observation (INO) | payer OTHER ==
[2021-11-06] MEDS ORDERED: DIPHENHYDRAMINE 50 MG/ML VIAL ONE (08:46)
[2021-11-06] MEDS ORDERED: NA CHLORIDE 0.9% 1,000 ML ONE (08:46)
[2021-11-06] MEDS ORDERED: METOCLOPRAMIDE 10 MG/2mL INJ ONE (08:46)
[2021-11-06] MEDS ORDERED: KETOROLAC 30 MG/ML INJ ONE (08:46)
--- NOTE | 2021-11-06 09:06 | RAD REPORT ---
EXAM DESCRIPTION: CT - Head Brain Wo Cont - 11/06/2021 8:59 am CLINICAL HISTORY: Headache COMPARISON: None TECHNIQUE: Computed axial tomography of the head was obtained. IV contrast was not requested. All CT scans are performed using dose optimization technique as appropriate and may include automated exposure control or mA/KV adjustment according to patient size. FINDINGS: An intracranial bleed is not seen . The ventricles are normal in caliber. No extra-axial fluid collection is noted. 4 centimeter low-density area right cerebellum. Fluid within the sinuses/ mastoids is not seen. IMPRESSION: 4 centimeter low-density area right cerebellum likely an acute infarction
[2021-11-06 09:07] LABS: Urine Blood Negative (Negative); Urine Glucose Trace (Negative); Urine Protein 2+ (Negative)
--- NOTE | 2021-11-06 09:09 | RAD REPORT ---
EXAM DESCRIPTION: Julee Single View11/06/2021 9:01 am CLINICAL HISTORY: Dizziness COMPARISON: 2019 FINDINGS: The lungs appear clear of acute infiltrate. The heart is normal size IMPRESSION: No acute abnormalities displayed
[2021-11-06] MEDS ORDERED: ASPIRIN EC 325 MG TABLET PO ONE (09:39)
[2021-11-06] MEDS ORDERED: FOLIC ACID 5 MG/ML VIAL ONE (09:39)
[2021-11-06 09:46] LABS: Absolute Lymphocytes (CBC) 2.7 K/uL (0.7-4.9); Lymphocytes % 18.6 % (15.3-44.8); MPV 8.1 fL (7.6-11.3); RBC Red Blood Cell Count 5.21 M/uL (4.33-5.43)
[2021-11-06 10:06] LABS: Albumin 3.8 g/dL (3.4-5.0); Bilirubin Direct 0.1 mg/dL (0-0.2); Bilirubin Total 0.5 mg/dL (0.2-1.0); Potassium 3.1 mmol/L (3.5-5.1); Protein, Total 7.9 g/dL (6.4-8.2); Troponin High Sensitivity 6.8 pg/mL (<58.9)
--- NOTE | 2021-11-06 10:16 | ER ---
Nurse's Notes [facility] Name: Phillip Faustin Age: 56 yrs Sex: Male : 1965 Arrival Date: 11/06/2021 Time: 07:51 Bed 25 Private MD: Diagnosis: Cerebellar stroke syndrome-cerebellar cva, acute right, with mass effect;Ataxic gait Presentation: 11/06 08:04 Chief complaint: Patient states: was seen in ED on Saturday for dizziness and N/V; vg1 states still is not feeling well and is still feeling dizzy and nauseated. Coronavirus screen: Vaccine status: Patient reports receiving the 2nd dose of the covid vaccine. Client denies travel out of the [place] in the last 14 days. Ebola Screen: Patient denies exposure to infectious person. Patient denies travel to an Ebola-affected area in the 21 days before illness onset. No acute neurological deficit is noted. Initial Sepsis Screen: Does the patient meet any 2 criteria? No. Patient's initial sepsis screen is negative. Does the patient have a suspected source of infection? No. Patient's initial sepsis screen is negative. Risk Assessment: Do you want to hurt yourself or someone else? Patient reports no desire to harm self or others. Onset of symptoms was November 04, 2021. 08:04 Method Of Arrival: Wheelchair vg1 08:04 Acuity: CORNELL 3 vg1 Triage Assessment: 08:06 The onset of the patients symptoms was more than six hours ago. General: Appears vg1 uncomfortable, Behavior is calm, cooperative. Pain: Complains of pain in head Pain currently is 8 out of 10 on a pain scale. Neuro: Jacob Agitation-Sedation Scale (RASS): 0 - Alert and Calm Level of Consciousness is awake, alert, obeys commands, Oriented to person, place, time, situation, Chin Strap Cutter are equal bilaterally Moves all extremities. Gait is unsteady, Speech is normal, Facial symmetry appears normal, Reports dizziness, headache Denies blurred vision paresthesias numbness. Historical: - Allergies: 08:06 No Known Allergies; vg1 - Home Meds: 08:06 Aspirin Oral [Active]; Simvastatin Oral [Active]; Chlorthalidone Oral [Active]; Zofran vg1 Oral [Active]; - PMHx: 08:06 Hypertension; High Cholesterol; vg1 - PSHx: 08:06 Stented artery; vg1 - Immunization history:: Client reports receiving the 2nd dose of the Covid vaccine. - Social history:: Smoking status: Patient/guardian denies using tobacco, the patient reports quitting approximately 2 years ago. Screenin:13 Abuse screen: Denies threats or abuse. Denies injuries from another. Nutritional bp screening: No deficits noted. Tuberculosis screening: No symptoms or risk factors identified. Fall Risk No fall in past 12 months (0 pts). No secondary diagnosis (0 pts). Gait- Weak (10 pts.). Assessment: 08:13 VAN Scoring: Arm Drift: Patients demonstrates NO arm weakness. Patient is VAN Negative. bp The patient has not been NPO before screening. The patient is alert, and able to follow commands. The patient does not exhibit slurred or garbled speech. The patient is not exhibiting difficulty speaking. The patient does not exhibit difficulty understanding words. The patient is able to swallow own secretions with no drooling or need for suction. Patient tolerated one teaspoon of water. No drooling, immediate coughing, gurgling, or clearing of the throat was noted. The patient tolerated 90mL of water. No drooling, immediate coughing, gurgling, or clearing of the throat was noted. The patient passed the bedside swallow screening. Oral medications may be given as ordered. Contact Physician for further diet orders. Provider notified of bedside swallow screening results: Gucci Santos FLOOR FINISHER. T-PA (Activase) Screening: Contraindications: Patient reports onset of signs and symptoms of stroke greater than 6 hours ago: Yes. General: SEE TRIAGE NOTE. 09:30 Reassessment: PROVIDER AT B/S. PER CT, POSSIBLE CEREBELLAR INFARCT. bp 10:38 Reassessment: No changes from previously documented assessment. Patient and/or family bp updated on plan of care and expected duration. Pain level reassessed. ADMIT INITIATED. 12:33 Reassessment: ADMIT IN PROCESS. NEURO C/S PENDING. bp 20:00 Reassessment: No changes from previously documented assessment. Patient and/or family ke1 updated on plan of care and expected duration. Pain level reassessed. Patient is alert, oriented x 3, equal unlabored respirations, skin warm/dry/pink. Patient denies pain at this time. 21:00 Reassessment: Patient appears in no apparent distress at this time. No changes from ke1 previously documented assessment. Patient and/or family updated on plan of care and expected duration. Pain level reassessed. Patient is alert, oriented x 3, equal unlabored respirations, skin warm/dry/pink. Patient denies pain at this time. 22:00 Reassessment: Patient appears in no apparent distress at this time. No changes from ke1 previously documented assessment. Patient and/or family updated on plan of care and expected duration. Pain level reassessed. Patient is alert, oriented x 3, equal unlabored respirations, skin warm/dry/pink. 22:56 Reassessment: report given to Adam Platt at [facility]. ke1 Vital Signs: 08:04 BP 145 / 95; Pulse 90; Resp 16; Temp 98.3(O); Pulse Ox 100% on R/A; Weight 58.06 kg; vg1 Height 5 ft. 2 in. (157.48 cm); Pain 8/10; 09:30 BP 152 / 76; Pulse 75; Resp 16; Pulse Ox 99% ; bp 10:38 BP 156 / 79; Pulse 65; Resp 16; Pulse Ox 100% ; bp 12:33 BP 146 / 84; Pulse 70; Resp 15; Pulse Ox 99% ; bp 08:04 Body Mass Index 23.41 (58.06 kg, 157.48 cm) vg1 NIH Stroke Scale Scores: 08:13 NIHSS Score: 0 bp 09:46 NIHSS Score: 0 pm1 19:30 NIHSS Score: 0 ke1 ED Course: 07:51 Patient arrived in ED. mr 08:06 Triage completed. vg1 08:06 Gucci Santos NP is PHCP. pm1 08:06 Moy Trujillo MD is Attending Physician. pm1 08:06 Arm band placed on. vg1 08:12 Max Wiley, ARLETTE is Primary Nurse. bp 08:13 Patient has correct armband on for positive identification. Bed in low position. Call bp light in reach. Side rails up X2. 09:01 CT Head Brain wo Cont In Process Unspecified. EDMS 09:03 XRAY Chest (1 view) In Process Unspecified. EDMS 09:30 Inserted saline lock: 22 gauge in left forearm, using aseptic technique. Blood bp collected. 10:15 Connor Ruiz MD is Hospitalizing Provider. pm1 10:42 Kashif Trujillo MD is Hospitalizing Provider. pm1 11:31 CT Head Angio In Process Unspecified. EDMS 11:31 CT Neck Angio In Process Unspecified. EDMS 14:25 No provider procedures requiring assistance completed. Patient admitted, IV remains in bp place. 20:30 Initiated call for transfer, said it likely will be at [facility]. 20:57 [facility] called back and denied due to capacity. 21:25 Initiated transfer to [facility], connected with our Hospitalist Mis per transfer center. 21:28 Attending Physician role handed off by Moy Trujillo MD remedios 21:28 Roge Novak MD is Attending Physician. remedios 21:[address] report with [place]. Administered Medications: 09:20 Not Given (Physician Discretion): Ketorolac 30 mg IVP once pm1 09:20 Not Given (Physician Discretion): Benadryl (diphenhydrAMINE) 25 mg IVP once pm1 09:25 Drug: NS 0.9% 1000 ml Route: IV; Rate: 1000 ml; Site: left forearm; bp 12:34 Follow up: IV Status: Completed infusion; IV Intake: 1000ml bp 09:29 Not Given (Physician Discretion): Reglan (metoCLOPramide) 10 mg IVP once; over 1 to 2 pm1 minutes 09:30 Drug: Aspirin 325 mg Route: PO; bp 09:58 Follow up: Response: No adverse reaction bp 09:30 Drug: foLIC Acid 1 mg Route: IVPB; Site: left forearm; bp 10:58 Follow up: IV Status: Completed infusion; IV Intake: 100ml bp 11:00 Drug: Potassium Effervescent Tablet 50 mEq Route: PO; bp 12:34 Follow up: Response: No adverse reaction bp Medication: 08:13 VIS not applicable for this client. bp Intake: 10:58 IV: 100ml; Total: 100ml. bp 12:34 IV: 1000ml; Total: 1100ml. bp Outcome: 10:15 Decision to Hospitalize by Provider. pm1 21:39 ER care complete, transfer ordered by . remedios 23:43 Patient left the ED. ke1 NIH Stroke Scale - NIH Stroke Score Date: 11/06/2021 Time: 08:13 Total Score = 0 1a. Level of Consciousness (LOC) - 0(Alert) 1b. Level of Consciousness (LOC) (Month \T\ Age) - 0(Both) 1c. LOC Commands (Open \T\ Closes Eyes/Manager French) - 0(Both) 2. Best Gaze (Lateral Gaze Paresis) - 0(Normal) 3. Visual Field Loss - 0(No visual loss) 4. Facial Palsy - 0(Normal) 5a. Left Arm: Motor (10-second hold) - 0(No drift) 5b. Right Arm: Motor (10-second hold) - 0(No drift) 6a. Left Leg: Motor (5-second hold - always test supine) - 0(No drift) 6b. Right Leg: Motor (5-second hold - always test supine) - 0(No drift) 7. Limb Ataxia (finger/nose \T\ heel/herron - test with eyes open) - 0(Absent) 8. Sensory Loss (pinprick arms/legs/face) - 0(Normal) 9. Best Language: Aphasia (description/naming/reading) - 0(No aphasia) 10. Dysarthria (speech clarity - read or repeat words) - 0(Normal) 11. Extinction and Inattention (visual/tactile/auditory/spatial/personal) - 0(No abnormality) Initials: bp NIH Stroke Scale - NIH Stroke Score Date: 11/06/2021 Time: 09:46 Total Score = 0 1a. Level of Consciousness (LOC) - 0(Alert) 1b. Level of Consciousness (LOC) (Month \T\ Age) - 0(Both) 1c. LOC Commands (Open \T\ Closes Eyes/Manager French) - 0(Both) 2. Best Gaze (Lateral Gaze Paresis) - 0(Normal) 3. Visual Field Loss - 0(No visual loss) 4. Facial Palsy - 0(Normal) 5a. Left Arm: Motor (10-second hold) - 0(No drift) 5b. Right Arm: Motor (10-second hold) - 0(No drift) 6a. Left Leg: Motor (5-second hold - always test supine) - 0(No drift) 6b. Right Leg: Motor (5-second hold - always test supine) - 0(No drift) 7. Limb Ataxia (finger/nose \T\ heel/herron - test with eyes open) - 0(Absent) 8. Sensory Loss (pinprick arms/legs/face) - 0(Normal) 9. Best Language: Aphasia (description/naming/reading) - 0(No aphasia) 10. Dysarthria (speech clarity - read or repeat words) - 0(Normal) 11. Extinction and Inattention (visual/tactile/auditory/spatial/personal) - 0(No abnormality) Initials: pm1 NIH Stroke Scale - NIH Stroke Score Date: 11/06/2021 Time: 19:30 Total Score = 0 1a. Level of Consciousness (LOC) - 0(Alert) 1b. Level of Consciousness (LOC) (Month \T\ Age) - 0(Both) 1c. LOC Commands (Open \T\ Closes Eyes/Manager French) - 0(Both) 2. Best Gaze (Lateral Gaze Paresis) - 0(Normal) 3. Visual Field Loss - 0(No visual loss) 4. Facial Palsy - 0(Normal) 5a. Left Arm: Motor (10-second hold) - 0(No drift) 5b. Right Arm: Motor (10-second hold) - 0(No drift) 6a. Left Leg: Motor (5-second hold - always test supine) - 0(No drift) 6b. Right Leg: Motor (5-second hold - always test supine) - 0(No drift) 7. Limb Ataxia (finger/nose \T\ heel/herron - test with eyes open) - 0(Absent) 8. Sensory Loss (pinprick arms/legs/face) - 0(Normal) 9. Best Language: Aphasia (description/naming/reading) - 0(No aphasia) 10. Dysarthria (speech clarity - read or repeat words) - 0(Normal) 11. Extinction and Inattention (visual/tactile/auditory/spatial/personal) - 0(No abnormality) Initials: ke1 Signatures: Dispatcher [employer] EDMS Roge Novak MD MD cha Rivera, Jaleesa mr Gucci Santos, FLOOR FINISHER FLOOR FINISHER pm1 Max Wiley, Maral Luke RN, RN RN vg1 Fany Pastrana Kouassi, RN RN ke1 Corrections: (The following items were deleted from the chart) 08:08 08:06 PMHx: heart blockage; vg1 vg1 08:11 08:06 Neuro: Jacob Agitation-Sedation Scale (RASS): 0 - Alert and Calm Level vg1 of Consciousness is awake, alert, obeys commands, Oriented to person, place, time, situation, Reports dizziness, headache Denies blurred vision paresthesias numbness vg1 21:49 21:25 Initiated transfer to [facility] 21: 21:50 Dr to report from [facility]
--- NOTE | 2021-11-06 10:16 | EDPHYS ---
Physician Documentation [facility] Name: Phillip Faustin Age: 56 yrs Sex: Male : 1965 Arrival Date: 11/06/2021 Time: 07:51 Bed 25 Private MD: ED Physician Roge Novak HPI: 11/06 08:36 This 56 yrs old Black Male presents to ER via Wheelchair with complaints of Weakness. pm1 08:36 The patient presents to the emergency department with weakness of the entire body, pm1 generalized weakness, dizziness with change in position. Onset: The symptoms/episode began/occurred 2 day(s) ago. Context: Occurred after eating crawfish 2 days ago. Patient believes he ate a bad batch in and resulting nausea and vomiting. Decreased p.o. intake yesterday and he believes that he is dehydrated. Associated signs and symptoms: Pertinent negatives: fever, Abdominal pain, chest pain, shortness of breath. Severity of symptoms: in the emergency department the symptoms are unchanged Pain is currently a 0 / 10. Patient's baseline: Neuro: alert and fully oriented, Motor: no deficits, Ambulation: walks without assistance, Speech: normal. Current symptoms: Currently, the patient is not experiencing any symptoms. The patient has not experienced similar symptoms in the past. The patient has been recently seen at the [facility] Emergency Department, Patient was seen for dizziness, nausea, and vomiting onset after eating crawfish 2 days ago. Historical: - Allergies: 08:06 No Known Allergies; vg1 - Home Meds: 08:06 Aspirin Oral [Active]; Simvastatin Oral [Active]; Chlorthalidone Oral [Active]; Zofran vg1 Oral [Active]; - PMHx: 08:06 Hypertension; High Cholesterol; vg1 - PSHx: 08:06 Stented artery; vg1 - Immunization history:: Client reports receiving the 2nd dose of the Covid vaccine. - Social history:: Smoking status: Patient/guardian denies using tobacco, the patient reports quitting approximately 2 years ago. ROS: 21:34 Constitutional: Negative for fever, chills, and weight loss, Eyes: Negative for injury, remedios pain, redness, and discharge, ENT: Negative for injury, pain, and discharge, Neck: Negative for injury, pain, and swelling, Cardiovascular: Negative for chest pain, palpitations, and edema, Respiratory: Negative for shortness of breath, cough, wheezing, and pleuritic chest pain, Abdomen/GI: Negative for abdominal pain, nausea, vomiting, diarrhea, and constipation, Back: Negative for injury and pain, : Negative for injury, bleeding, discharge, and swelling, MS/Extremity: Negative for injury and deformity, Skin: Negative for injury, rash, and discoloration, Psych: Negative for depression, anxiety, suicide ideation, homicidal ideation, and hallucinations, Allergy/Immunology: Negative for hives, rash, and allergies, Endocrine: Negative for neck swelling, polydipsia, polyuria, polyphagia, and marked weight changes, Hematologic/Lymphatic: Negative for swollen nodes, abnormal bleeding, and unusual bruising. 21:34 Neuro: Positive for dizziness, falling to the left , ataxia. Exam: 21:34 Constitutional: This is a well developed, well nourished patient who is awake, alert, remedios and in no acute distress. Head/Face: Normocephalic, atraumatic. Eyes: Pupils equal round and reactive to light, extra-ocular motions intact. Lids and lashes normal. Conjunctiva and sclera are non-icteric and not injected. Cornea within normal limits. Periorbital areas with no swelling, redness, or edema. ENT: Nares patent. No nasal discharge, no septal abnormalities noted. Tympanic membranes are normal and external auditory canals are clear. Oropharynx with no redness, swelling, or masses, exudates, or evidence of obstruction, uvula midline. Mucous membranes moist. Neck: Trachea midline, no thyromegaly or masses palpated, and no cervical lymphadenopathy. Supple, full range of motion without nuchal rigidity, or vertebral point tenderness. No Meningismus. Chest/axilla: Normal chest wall appearance and motion. Nontender with no deformity. No lesions are appreciated. Cardiovascular: Regular rate and rhythm with a normal S1 and S2. No gallops, murmurs, or rubs. Normal PMI, no JVD. No pulse deficits. Respiratory: Lungs have equal breath sounds bilaterally, clear to auscultation and percussion. No rales, rhonchi or wheezes noted. No increased work of breathing, no retractions or nasal flaring. Abdomen/GI: Soft, non-tender, with normal bowel sounds. No distension or tympany. No guarding or rebound. No evidence of tenderness throughout. Back: No spinal tenderness. No costovertebral tenderness. Full range of motion. Male : Normal genitalia with no discharge or lesions. Skin: Warm, dry with normal turgor. Normal color with no rashes, no lesions, and no evidence of cellulitis. MS/ Extremity: Pulses equal, no cyanosis. Neurovascular intact. Full, normal range of motion. Neuro: Awake and alert, GCS 15, oriented to person, place, time, and situation. Cranial nerves II-XII grossly intact. Motor strength 5/5 in all extremities. Sensory grossly intact. Cerebellar exam normal. Normal gait. Psych: Awake, alert, with orientation to person, place and time. Behavior, mood, and affect are within normal limits. Vital Signs: 08:04 BP 145 / 95; Pulse 90; Resp 16; Temp 98.3(O); Pulse Ox 100% on R/A; Weight 58.06 kg; vg1 Height 5 ft. 2 in. (157.48 cm); Pain 8/10; 09:30 BP 152 / 76; Pulse 75; Resp 16; Pulse Ox 99% ; bp 10:38 BP 156 / 79; Pulse 65; Resp 16; Pulse Ox 100% ; bp 12:33 BP 146 / 84; Pulse 70; Resp 15; Pulse Ox 99% ; bp 08:04 Body Mass Index 23.41 (58.06 kg, 157.48 cm) vg1 NIH Stroke Scale Scores: 08:13 NIHSS Score: 0 bp 09:46 NIHSS Score: 0 pm1 19:30 NIHSS Score: 0 ke1 MDM: 08:12 Patient medically screened. pm1 09:20 ED course: Patient takes aspirin 81 mg every other day. Did not take today. Patient pm1 onset of symptoms 2 days ago with headache and dizziness. 09:46 Counseling: I had a detailed discussion with the patient and/or guardian regarding: the pm1 historical points, exam findings, and any diagnostic results supporting the discharge/admit diagnosis, radiology results, the need for further work-up and treatment in the hospital. 10:11 Data reviewed: vital signs. Data interpreted: Pulse oximetry: on room air is 99 %. pm1 Interpretation: normal. 10:21 Physician consultation: Torres Kenyon MD was called at 10:22, was contacted at 10:22, pm1 regarding consult, patient's condition, and will see patient would like further tests performed, CT head and neck angiogram. 11/06 08:32 Order name: Basic Metabolic Panel; Complete Time: 10:11 pm11/06 08:32 Order name: CBC with Diff; Complete Time: 10:01 pm1 11/06 08:32 Order name: LFT's; Complete Time: 10:11 pm11/06 08:32 Order name: Magnesium; Complete Time: 10:11 pm11/06 08:32 Order name: Troponin HS; Complete Time: 10:11 pm11/06 09:07 Order name: Urine Dipstick-Ancillary; Complete Time: 09:15 EDMS 11/06 10:01 Order name: Urine Microscopic Only; Complete Time: 10:51 pm11/06 10:01 Order name: PT-INR; Complete Time: 10:51 pm1 11/06 13:59 Order name: Phosphorus; Complete Time: 14:40 EDMS 11/06 13:59 Order name: NT PRO-BNP; Complete Time: 14:40 EDMS 11/06 13:59 Order name: T4 Free; Complete Time: 14:40 EDMS 11/06 13:59 Order name: Magnesium; Complete Time: 14:40 EDMS 11/06 13:59 Order name: Thyroid Stimulating Hormone; Complete Time: 14:40 EDMS 11/06 14:38 Order name: COVID-19 SARS RT PCR (Document "Date of Onset" if Symptomatic) pm11/06 08:32 Order name: XRAY Chest (1 view); Complete Time: 09:15 pm11/06 08:32 Order name: EKG; Complete Time: 08:33 pm11/06 08:32 Order name: CT Head Brain wo Cont; Complete Time: 09:15 pm11/06 10:34 Order name: CT Head Angio; Complete Time: 12:00 pm11/06 10:34 Order name: CT Neck Angio; Complete Time: 12:00 pm11/06 10:53 Order name: Brain Wo Cont; Complete Time: 13:43 EDMS 11/06 11:40 Order name: CONS Physician Consult EDMS 11/06 11:41 Order name: Echo with Doppler EDMS 11/06 17:00 Order name: SARS-COV-2 RT PCR; Complete Time: 17:53 EDMS 11/06 08:32 Order name: Cardiac monitoring; Complete Time: 09:25 pm1 11/06 08:32 Order name: EKG - Nurse/Tech; Complete Time: 09:25 pm1 11/06 08:32 Order name: IV Saline Lock; Complete Time: 09:25 pm1 11/06 08:32 Order name: Labs collected and sent; Complete Time: 09:25 pm1 11/06 08:32 Order name: O2 Per Protocol; Complete Time: 08:33 pm1 11/06 08:32 Order name: O2 Sat Monitoring; Complete Time: 08:33 pm1 11/06 08:32 Order name: Orthostatic Blood Pressure; Complete Time: 09:25 pm1 11/06 08:32 Order name: Urine Dipstick-Ancillary (obtain specimen); Complete Time: 09:25 pm1 Administered Medications: 09:20 Not Given (Physician Discretion): Ketorolac 30 mg IVP once pm1 09:20 Not Given (Physician Discretion): Benadryl (diphenhydrAMINE) 25 mg IVP once pm1 09:25 Drug: NS 0.9% 1000 ml Route: IV; Rate: 1000 ml; Site: left forearm; bp 12:34 Follow up: IV Status: Completed infusion; IV Intake: 1000ml bp 09:29 Not Given (Physician Discretion): Reglan (metoCLOPramide) 10 mg IVP once; over 1 to 2 pm1 minutes 09:30 Drug: Aspirin 325 mg Route: PO; bp 09:58 Follow up: Response: No adverse reaction bp 09:30 Drug: foLIC Acid 1 mg Route: IVPB; Site: left forearm; bp 10:58 Follow up: IV Status: Completed infusion; IV Intake: 100ml bp 11:00 Drug: Potassium Effervescent Tablet 50 mEq Route: PO; bp 12:34 Follow up: Response: No adverse reaction bp Disposition: 11/07 14:41 Co-signature as Attending Physician, Moy Trujillo MD. rn Disposition Summary: 11/06/21 21:39 Transfer Ordered Transfer Location: [facility] remedios Reason: Higher level of care remedios Condition: Fair(11/06/21 21:39) remedios Problem: new(11/06/21 21:39) remedios Symptoms: have improved(11/06/21 21:39) remedios Accepting Physician: jose flores neuro(11/06/21 23:43) ke1 Diagnosis - Cerebellar stroke syndrome - cerebellar cva, acute right, with mass effect remedios - Ataxic gait remedios Forms: - Medication Reconciliation Form remedios - SBAR form remedios NIH Stroke Scale - NIH Stroke Score Date: 11/06/2021 Time: 08:13 Total Score = 0 1a. Level of Consciousness (LOC) - 0(Alert) 1b. Level of Consciousness (LOC) (Month \\T\\ Age) - 0(Both) 1c. LOC Commands (Open \\T\\ Closes Eyes/Graphics Intern) - 0(Both) 2. Best Gaze (Lateral Gaze Paresis) - 0(Normal) 3. Visual Field Loss - 0(No visual loss) 4. Facial Palsy - 0(Normal) 5a. Left Arm: Motor (10-second hold) - 0(No drift) 5b. Right Arm: Motor (10-second hold) - 0(No drift) 6a. Left Leg: Motor (5-second hold - always test supine) - 0(No drift) 6b. Right Leg: Motor (5-second hold - always test supine) - 0(No drift) 7. Limb Ataxia (finger/nose \\T\\ heel/herron - test with eyes open) - 0(Absent) 8. Sensory Loss (pinprick arms/legs/face) - 0(Normal) 9. Best Language: Aphasia (description/naming/reading) - 0(No aphasia) 10. Dysarthria (speech clarity - read or repeat words) - 0(Normal) 11. Extinction and Inattention (visual/tactile/auditory/spatial/personal) - 0(No abnormality) Initials: bp NIH Stroke Scale - NIH Stroke Score Date: 11/06/2021 Time: 09:46 Total Score = 0 1a. Level of Consciousness (LOC) - 0(Alert) 1b. Level of Consciousness (LOC) (Month \\T\\ Age) - 0(Both) 1c. LOC Commands (Open \\T\\ Closes Eyes/Graphics Intern) - 0(Both) 2. Best Gaze (Lateral Gaze Paresis) - 0(Normal) 3. Visual Field Loss - 0(No visual loss) 4. Facial Palsy - 0(Normal) 5a. Left Arm: Motor (10-second hold) - 0(No drift) 5b. Right Arm: Motor (10-second hold) - 0(No drift) 6a. Left Leg: Motor (5-second hold - always test supine) - 0(No drift) 6b. Right Leg: Motor (5-second hold - always test supine) - 0(No drift) 7. Limb Ataxia (finger/nose \\T\\ heel/herron - test with eyes open) - 0(Absent) 8. Sensory Loss (pinprick arms/legs/face) - 0(Normal) 9. Best Language: Aphasia (description/naming/reading) - 0(No aphasia) 10. Dysarthria (speech clarity - read or repeat words) - 0(Normal) 11. Extinction and Inattention (visual/tactile/auditory/spatial/personal) - 0(No abnormality) Initials: pm1 NIH Stroke Scale - NIH Stroke Score Date: 11/06/2021 Time: 19:30 Total Score = 0 1a. Level of Consciousness (LOC) - 0(Alert) 1b. Level of Consciousness (LOC) (Month \\T\\ Age) - 0(Both) 1c. LOC Commands (Open \\T\\ Closes Eyes/Graphics Intern) - 0(Both) 2. Best Gaze (Lateral Gaze Paresis) - 0(Normal) 3. Visual Field Loss - 0(No visual loss) 4. Facial Palsy - 0(Normal) 5a. Left Arm: Motor (10-second hold) - 0(No drift) 5b. Right Arm: Motor (10-second hold) - 0(No drift) 6a. Left Leg: Motor (5-second hold - always test supine) - 0(No drift) 6b. Right Leg: Motor (5-second hold - always test supine) - 0(No drift) 7. Limb Ataxia (finger/nose \\T\\ heel/herron - test with eyes open) - 0(Absent) 8. Sensory Loss (pinprick arms/legs/face) - 0(Normal) 9. Best Language: Aphasia (description/naming/reading) - 0(No aphasia) 10. Dysarthria (speech clarity - read or repeat words) - 0(Normal) 11. Extinction and Inattention (visual/tactile/auditory/spatial/personal) - 0(No abnormality) Initials: ke1 Signatures: Dispatcher [employer] EDRoeg Wills MD MD cha Nieto, Roman, MD MD rn Marinas, Patrick, CALL CENTER SUPPORT REPRESENTATIVE CALL CENTER SUPPORT REPRESENTATIVE pm1 Sascha Rios, RN RN ja1 Max Wiley, RN RN Maral Huitron, RN RN vg1 Gio Yancey, RN RN ke1 Corrections: (The following items were deleted from the chart) 11/06 08:08 08:06 PMHx: heart blockage; vg1 vg1 10:42 10:15 Connor Ruiz pm1 pm1 14:24 10:15 Telemetry/MedSurg (Inpatient) pm1 bp 14:24 10:15 pm1 bp 18:43 14:24 [facility] ER HOLD bp ja1 18:43 14:24 ERHOLD- bp ja1 21:37 10:15 Inpatient Admission pm1 remedios 21:37 10:15 Stable pm1 remedios 21:37 10:15 new pm1 remedios 21:37 10:15 have improved pm1 remedios 21:37 10:15 Standard pm1 remedios 21:37 10:15 Cerebral infarction, unspecified pm1 remedios 21:37 10:42 Kashif Trujillo pm1 remedios 21:37 18:43 Telemetry/MedSurg (Inpatient) ja1 remedios 21:37 18:43 208 ja1 remedios 23:43 21:39 to [place] [facility] remedios ke1
[2021-11-06 10:48] LABS: Protime INR 1.04; Urine Bacteria <20 /HPF (NONE SEEN); Urine Mucus 2+ /HPF (NONE SEEN); Urine RBC <5 /HPF (NONE SEEN)
[2021-11-06] MEDS ORDERED: POTASSIUM 25 MEQ EFFERV TAB ONE (11:06)
--- NOTE | 2021-11-06 11:44 | RAD REPORT ---
EXAM DESCRIPTION: Jo Angio11/06/2021 11:29 am CLINICAL HISTORY: CVA COMPARISON: None TECHNIQUE: 50 cc Isovue 370 was administered intravenously. 3D MIP reconstruction performed All CT scans are performed using dose optimization technique as appropriate and may include automated exposure control or mA/KV adjustment according to patient size. FINDINGS: The common carotid, internal carotid and external carotid arteries bilaterally demonstrate minimal calcified plaque. The vertebral arteries are codominant. No dissection seen. No high-grade stenosis noted IMPRESSION: Mild calcified plaque within the carotid arteries NASCET criteria used. Mild 0-49% stenosis Moderate 50-69% stenosis Severe 70-99% stenosis
--- NOTE | 2021-11-06 11:44 | RAD REPORT ---
EXAM DESCRIPTION: CTHead angio11/06/2021 11:29 am CLINICAL HISTORY: CVA COMPARISON: None TECHNIQUE: CT angiogram of the head was obtained. 3D MIPS reconstruction performed. All CT scans are performed using dose optimization technique as appropriate and may include automated exposure control or mA/KV adjustment according to patient size. FINDINGS: The basilar, internal carotid, anterior cerebral, middle cerebral and posterior cerebral a rteries are normal caliber. An aneurysm is not seen. A significant stenosis is not noted. IMPRESSION: No acute abnormality is displayed.
[2021-11-06] MEDS ORDERED: ONDANSETRON 4 MG/2 ML VIAL IV PRN (12:08)
[2021-11-06] MEDS ORDERED: ACETAMINOPHEN 500 MG TAB PO PRN (12:08)
[2021-11-06] MEDS ORDERED: HYDROCODONE/APAP 5/325 MG TAB PO PRN (12:16)
[2021-11-06] MEDS ORDERED: HYDRALAZINE HCL 20 MG/ML VIAL IV PRN (12:26)
--- NOTE | 2021-11-06 12:51 | P.HP ---
Certification for Inpatient Patient admitted to: Observation With expected LOS: <2 Midnights Patient will require the following post-hospital care: None Practitioner: I am a practitioner with admitting privileges, knowledge of patient current condition, hospital course, and medical plan of care. Services: Services provided to patient in accordance with Admission requirements found in Title 42 Section 412.3 of the Code of Federal Regulations Patient History Date of Service: 11/06/21 Reason for admission: Headache and dizziness History of Present Illness: Patient is a 56-year-old male with a past medical history significant for hyperlipidemia, hypertension, CAD who presents with complaint of dizziness and headache onset yesterday. Patient reported that he was discharged from the ER 2 days ago for nausea and vomiting which started 3 days ago after eating some crawfish. Patient reported that upon discharge he was doing fine without any episode of nausea and vomiting until 2 days ago when he started having episodes of headache and dizziness. Patient reported associated signs and symptoms of nausea, poor gait and lightheadedness. Patient denies any other signs or symptoms. Symptoms are aggravated or relieved by nothing. Patient decided to present to the hospital for medical evaluation. Allergies No Known Allergies Allergy (Verified 04/18/15 01:55) Home Medications: Aspirin Chewable [Aspirin Chewable*] 81 mg PO DAILY #30 tab.chew 04/19/15 Clopidogrel Bisulfate [Plavix*] 75 mg PO DAILY #30 tablet 04/19/15 Metoprolol Succinate [Toprol Xl*] 50 mg PO DAILY #30 tab 04/19/15 Simvastatin [Zocor*] 40 mg PO BEDTIME #30 tablet 04/19/15 - Past Medical/Surgical History Diabetic: No -: CAD -: HTN -: HLD -: stent placement - Family History Father -: Cancer Notes: Prostate Mother -: Hypertension - Social History Smoking Status: Former smoker Alcohol use: No CD- Drugs: No Caffeine use: Yes Review of Systems General: Unremarkable Eyes: Unremarkable ENT: Unremarkable Respiratory: Unremarkable Cardiovascular: Light Headedness, Unremarkable Gastrointestinal: Nausea Genitourinary: Unremarkable Musculoskeletal: Other (Poor gait ) Integumentary: Unremarkable Neurological: Other (Dizziness, DORMNA) Lymphatics: Unremarkable Physical Examination - Physical Exam General: Alert, Oriented x3, Cooperative HEENT: Normocephalic, PERRLA Neck: Supple, 2+ carotid pulse no bruit, JVD not distended Respiratory: Clear to auscultation bilaterally, Normal air movement Cardiovascular: No edema, Normal pulses, Regular rate/rhythm Capillary refill: <2 Seconds Gastrointestinal: Normal bowel sounds, Soft and benign Musculoskeletal: No clubbing, No swelling, No erythema, No tenderness Integumentary: No rashes, No breakdown, No tenderness/swelling, No erythema Neurological: Abnormal gait Lymphatics: No axilla or inguinal lymphadenopathy - Studies Laboratory Data (last 24 hrs) 11/06/21 10:20: PT 11.5, INR 1.04 11/06/21 09:30: Sodium 134 L, Potassium 3.1 L, BUN 10, Creatinine 1.09, Glucose 121 H, Magnesium 2.0, Total Bilirubin 0.5, AST 23, ALT 26, Alkaline Phosphatase 97 11/06/21 09:27: WBC 14.6 H D, Hgb 16.3, Hct 48.0, Plt Count 284 Assessment and Plan - Plan --CVA. CT head indicates a 4 cm low-density area right cerebellum likely an acute infarction. MRI brain pending for further evaluation. Continue aspirin and statin. Neurologist consulted. Echocardiogram pending to rule out any cardioembolic source of stroke.. Will await further recommendation from neurologist.. --Hypertension. We will allow for permissive hypertension. Hydralazine as needed for SBP greater than 180 or DBP greater than 100. --Hyperlipidemia. Continue statin. -- History of CAD with stent. Continue aspirin and statin. --Nausea. Antiemetics on board. Continue supportive care --Abnormality of gait and mobility. PT eval and treat. --Leukocytosis. Likely reactive. Will reassess WBC in the morning. Continue supportive care --CKD 2. Stable. We will continue to monitor renal functions. --Hypokalemia. Replete as needed. --DVT prophylaxis with Lovenox subQ. Discharge Plan: Home Plan to discharge in: 48 Hours - Advance Directives Does patient have a Living Will: No Does patient have a Durable POA for Healthcare: No - Code Status/Comfort Care Code Status Assessed: Yes Code Status: Full Code Physician Review: Patient Assessed, Agree with Above Assessment and Plan Critical Care: No
[2021-11-06 13:17] VITALS: O2SAT 97
--- NOTE | 2021-11-06 13:37 | RAD REPORT ---
EXAM DESCRIPTION: MRI - Brain Wo Cont - 11/06/2021 1:29 pm CLINICAL HISTORY: Suspected CVA Headache, drowsiness COMPARISON: Head angio dated 11/06/2021; Head Brain Wo Cont dated 11/06/2021 TECHNIQUE: Multi-sequence, multiplanar MR imaging of the brain was performed without contrast. FINDINGS: No intracranial hemorrhage, hydrocephalus or extra-axial fluid collections. There is a 5. 0 x 3.8 cm area of abnormal signal and elevated diffusion-weighted signal in the right cerebellar hem isphere compatible with acute CVA. No hemorrhagic component is evident. Midline structures are normally formed. Mastoid air cells and paranasal sinuses are clear. IMPRESSION: 5 cm acute nonhemorrhagic CVA right cerebellar hemisphere noted. There is moderate mass effect on/ effacement of the fourth ventricle caused by this.
[2021-11-06 13:59] LABS: Phosphorus 1.9 mg/dL (2.5-4.9); Thyroid Stimulating Hormone 0.323 uIU/mL (0.360-3.740)
[2021-11-06 14:13] VITALS: BMI 23.3
[2021-11-06 16:20] VITALS: BP 138/80
[2021-11-07 00:19] VITALS: TEMP 98.3
[2021-11-07] MEDS ORDERED: ASPIRIN 81 MG CHEWABLE TABLET PO SCH (09:00)
[2021-11-07] MEDS ORDERED: ENOXAPARIN 40 MG/0.4 ML SQ SCH (09:00)
--- NOTE | 2021-11-07 11:09 | EKG ---
Test Date: 2021-11-06 Test Time: 08:46:31 Electronic Warfare Linguist: BP MEASUREMENT RESULTS: Intervals: Rate: 71 DC: 142 QRSD: 80 QT: 376 QTc: 408 [place]: P: 76 DC: 142 QRS: 78 T: 65 INTERPRETIVE STATEMENTS: Normal sinus rhythm Minimal voltage criteria for LVH, may be normal variant Borderline ECG Compared to ECG 11/04/2021 06:43:53 Left ventricular hypertrophy now present Electronically Signed On 11-07-21 11:05:10 CDT by Michael Hager
== END 2021-11-06 23:00 | disposition short-term general hospital (02) ==
LOC: ER 07:49 → ERHOLD 11:36 → 2ND 19:48
PROVIDERS: ADMIT Hospitalist; ATTEND Hospitalist
DX: I63.9 Cerebral infarction, unspecified (principal); R29.700 NIHSS score 0; I25.10 Atherosclerotic heart disease of native coronary artery without angina pectoris; E78.5 Hyperlipidemia, unspecified; I12.9 Hypertensive chronic kidney disease with stage 1 through stage 4 chronic kidney disease, or unspecified chronic kidney disease; N18.2 Chronic kidney disease, stage 2 (mild); E87.6 Hypokalemia; R11.0 Nausea; R26.0 Ataxic gait; Z20.822 Contact with and (suspected) exposure to COVID-19; Z95.5 Presence of coronary angioplasty implant and graft; Z87.891 Personal history of nicotine dependence; Z79.02 Long term (current) use of antithrombotics/antiplatelets; Z79.899 Other long term (current) drug therapy; Z80.42 Family history of malignant neoplasm of prostate; Z82.49 Family history of ischemic heart disease and other diseases of the circulatory system
CPT/HCPCS: 96365; 96361; 93005; 85025; 80048; 36415; 83735 ×2; 84100; 85610; 80076; 84443; 84484; 84439; 83880; 70450; 70496; 70498; 71045; 70551; 97116; 97161; 97530; 99284; U0003; Q9967; J7030; G0378 ×2; 81003; 81015; J1200; J2765